=== PATIENT | female | born 1945 | race Caucasian/White ===

== ENCOUNTER 2018-11-08 09:24 | Day surgery (SDC) | payer OTHER ==
[~2018-11-08] VITALS: Ht 162.6 cm; Wt 76.8 kg
[2018-11-08] MEDS ORDERED: ZESTORETIC 20-121 EA PO (11:24)
[2018-11-08] MEDS ORDERED: LEVSOD50 PO (11:24)
[2018-11-08] MEDS ORDERED: Lipitor20 MG PO (11:27)
[2018-11-08] MEDS ORDERED: Aspir 8181 MG PO (11:28)
[2018-11-08] MEDS ORDERED: Pravachol40 MG PO (12:37)
== END 2018-11-08 11:36 | disposition home or self-care (01) ==
LOC: ORSCSDS 09:24
PROVIDERS: Internal Medicine Gastroenterology
PROC: 0DBP8ZX Excision of Rectum, Via Natural or Artificial Opening Endoscopic, Diagnostic (ICD-10-PCS; principal; 2018-11-08 10:45)
DX: Z12.11 Encounter for screening for malignant neoplasm of colon (principal); Z86.010 Personal history of colon polyps; K62.1 Rectal polyp; K57.30 Diverticulosis of large intestine without perforation or abscess without bleeding; D64.9 Anemia, unspecified; E03.9 Hypothyroidism, unspecified; E78.00 Pure hypercholesterolemia, unspecified; I10 Essential (primary) hypertension; E66.9 Obesity, unspecified; Z68.30 Body mass index [BMI] 30.0-30.9, adult; Z79.899 Other long term (current) drug therapy
CPT/HCPCS: 88305; J2704; J7120

== ENCOUNTER 2023-01-31 09:10 | Emergency (ER) | payer OTHER ==
[~2023-01-31] VITALS: Ht 160 cm; Wt 99.8 kg
[~2023-01-31 09:10] MED LIST: Aspir 8181 MG PO; LEVSOD50 PO; Lipitor20 MG PO; Pravachol40 MG PO; ZESTORETIC 20-121 EA PO
[2023-01-31] MEDS ORDERED: Percocet 5-3251 EACH PO ×3 (11:27→11:29)
[2023-01-31 11:32] VITALS: BP 146/68
== END 2023-01-31 11:32 | disposition home or self-care (01) ==
LOC: ER 09:10
DX: S20.212A Contusion of left front wall of thorax, initial encounter (principal); W18.30XA Fall on same level, unspecified, initial encounter; Z79.899 Other long term (current) drug therapy; Z79.82 Long term (current) use of aspirin
CPT/HCPCS: 71046; 99283-25